=== PATIENT | female | born 1995 | race Caucasian/White ===

== ENCOUNTER → 2016-12-11 | Outpatient (REF) | payer OTHER | LOC: M LAB REF 13:23 | PROVIDERS: ATTEND Internal Medicine Medical Oncology | DX: I82.409 Acute embolism and thrombosis of unspecified deep veins of unspecified lower extremity (principal) ==

== ENCOUNTER → 2017-03-28 | Outpatient (REF) | payer OTHER ==
[2017-03-28 15:08] LABS: INR 0.99; PROTHROMBIN TIME 13.2 SECONDS (12.4-14.5)
[2017-03-28 15:09] LABS: PARTIAL THROMBOPLASTIN TIME 32.5 SECONDS (26.8-37.9)
[2017-03-28 15:33] LABS: COLLAGEN EPINEPHRINE 179 SECONDS (74-162)
[2017-03-28 15:58] LABS: COLLAGEN ADP 128 SECONDS (56-103)
== END ==
LOC: M LAB REF 14:45
DX: I82.90 Acute embolism and thrombosis of unspecified vein (principal)

== ENCOUNTER 2017-03-29 10:19 | Day surgery (SDC) | payer OTHER ==
[2017-03-29] MEDS ORDERED: LIDOCAINE 2% INJ 100 MG/5 ML SDV (FOR ANES.) As Ordered (10:57)
[2017-03-29] MEDS ORDERED: MIDAZOLAM INJ 2 MG/2 ML VIAL (J2250) As Ordered (10:57)
[2017-03-29] MEDS ORDERED: fentaNYL 100 MCG/2 ML INJECTION (J3010) As Ordered (10:57)
[2017-03-29] MEDS ORDERED: PROPOFOL 200 MG/20 ML VIAL As Ordered (10:57)
[2017-03-29] MEDS ORDERED: ROCURONIUM BROMIDE 50 MG/5 ML VIAL As Ordered (10:57)
[2017-03-29] MEDS ORDERED: ONDANSETRON 4MG/2ML VIAL (J2405) As Ordered (10:57)
[2017-03-29] MEDS ORDERED: SUCCINYLCHOLINE 100 MG/5 ML SYRINGE (J0330) As Ordered (10:57)
[2017-03-29] MEDS: LR 1,000 ML IV (11:20)
[2017-03-29 11:39] LABS: CONTROL LINE UCG INT CTR LINE PRESENT; URINE PREG TEST NEGATIVE (NEGATIVE)
[2017-03-29] MEDS ORDERED: ePHEDrine INJ 50 MG/ML VIAL As Ordered (12:00)
[2017-03-29] MEDS: dexameTHASONE 4 MG/ML 1ML VIAL (J1100) IV (12:00)
[2017-03-29] MEDS ORDERED: PHENYLephrine HCL 500 MCG/5 ML (100MCG/ML) SYRINGE (J2370) As Ordered (12:00)
[2017-03-29] MEDS ORDERED: MEPERIDINE INJ 25 MG/ML VIAL (J2175) As Ordered (12:33)
[2017-03-29] MEDS: MEPERIDINE INJ 25 MG/ML VIAL (J2175) IV (12:36)
[2017-03-29] MEDS ORDERED: fentaNYL 100 MCG/2 ML INJECTION (J3010) IV (12:45)
[2017-03-29] MEDS ORDERED: ONDANSETRON 4MG/2ML VIAL (J2405) IV (12:45)
[2017-03-29] MEDS ORDERED: LR 1,000 ML IV ×2 (12:45→13:00)
[2017-03-29] MEDS: PERCOCET 5MG/325MG TAB PO (13:56)
== END 2017-03-29 15:05 | disposition home or self-care (01) ==
LOC: M SDC 10:19
DX: J35.01 Chronic tonsillitis (principal); Z86.718 Personal history of other venous thrombosis and embolism; D68.59 Other primary thrombophilia; Z79.899 Other long term (current) drug therapy; Z79.01 Long term (current) use of anticoagulants
CPT/HCPCS: 42826

== ENCOUNTER → 2017-07-23 | Outpatient (REF) | payer OTHER ==
[2017-07-23 17:36] LABS: HCG, SERUM QUANTITATIVE 13614 MIU/ML
[2017-07-23 17:55] LABS: HEMATOCRIT 36.9 % (36.0-47.0); HEMOGLOBIN 11.8 g/dl (12.0-15.5); MEAN CORPUSCULAR HEMOGLOBIN 28.2 pg (27.0-33.0); MEAN CORPUSCULAR VOLUME 88.1 fl (80.0-96.0); PLATELET COUNT, AUTOMATED 173 10^3/uL (150-450); RED BLOOD COUNT 4.19 10^6/uL (4.00-5.40); RED CELL DISTRIBUTION WIDTH 13.1 % (11.5-14.5); WHITE BLOOD COUNT 4.3 10^3/uL (4.0-10.0)
[2017-07-25 10:29] LABS: RUBELLA IgG QUALITATIVE IMMUNE (IMMUNE)
[2017-07-25 10:42] LABS: HBsAg Prenatal NEGATIVE (NEGATIVE)
[2017-07-25 10:59] LABS: HIV 1&2 SCREEN CENTAUR NEGATIVE (NEGATIVE)
[2017-07-25 10:59] LABS: HEPATITIS C VIRUS ABY INDEX < 0.0 INDEX (<0.8)
== END ==
LOC: M LAB REF 16:18
DX: O36.80X0 Pregnancy with inconclusive fetal viability, not applicable or unspecified (principal)

== ENCOUNTER → 2017-08-22 | Outpatient (REF) | payer OTHER ==
[2017-08-22 20:12] LABS: CHLAMYDIA DNA AMPLIFICATION NEGATIVE (NEGATIVE); GC DNA AMPLIFICATION NEGATIVE (NEGATIVE)
== END ==
LOC: M LAB REF 17:15
DX: Z34.81 Encounter for supervision of other normal pregnancy, first trimester (principal); Z36.89 Encounter for other specified antenatal screening
CPT/HCPCS: 87591

== ENCOUNTER → 2017-11-29 | Outpatient (REF) | payer MEDICAID ==
[2017-11-29 19:24] LABS: HEMATOCRIT 34.7 % (36.0-47.0); HEMOGLOBIN 11.3 g/dl (12.0-15.5); MEAN CORPUSCULAR HGB CONC 32.6 g/dl (32.0-36.5); PLATELET COUNT, AUTOMATED 140 10^3/uL (150-450); RED BLOOD COUNT 3.77 10^6/uL (4.00-5.40); RED CELL DISTRIBUTION WIDTH 14.5 % (11.5-14.5); WHITE BLOOD COUNT 7.7 10^3/uL (4.0-10.0)
[2017-11-29 19:45] LABS: INR 0.97
[2017-11-29 19:46] LABS: PARTIAL THROMBOPLASTIN TIME 34.3 SECONDS (25.4-37.6)
== END ==
LOC: M LAB REF 18:42
DX: O99.89 Other specified diseases and conditions complicating pregnancy, childbirth and the puerperium (principal); Z86.718 Personal history of other venous thrombosis and embolism
CPT/HCPCS: 85610

== ENCOUNTER → 2017-12-29 | Outpatient (CLI) | payer OTHER ==
[2017-12-29 18:14] LABS: GLUCOSE CHALLENGE TEST 1 HOUR 103 MG/DL (LESS THAN 140)
== END ==
LOC: M WUC 12:00
DX: Z34.82 Encounter for supervision of other normal pregnancy, second trimester (principal)
CPT/HCPCS: 82950

== ENCOUNTER → 2017-12-31 | Outpatient (REF) | payer OTHER ==
[2017-12-31 18:58] LABS: HEMATOCRIT 32.6 % (36.0-47.0); HEMOGLOBIN 10.7 g/dl (12.0-15.5); MEAN CORPUSCULAR HEMOGLOBIN 30.1 pg (27.0-33.0); MEAN CORPUSCULAR HGB CONC 32.8 g/dl (32.0-36.5); MEAN CORPUSCULAR VOLUME 91.6 fl (80.0-96.0); PLATELET COUNT, AUTOMATED 138 10^3/uL (150-450); RED BLOOD COUNT 3.56 10^6/uL (4.00-5.40); RED CELL DISTRIBUTION WIDTH 13.8 % (11.5-14.5)
[2018-01-04 08:46] LABS: AB SCREEN (INDIRECT COOMBS)VIS 1 1
== END ==
LOC: M LAB REF 16:21
DX: Z34.83 Encounter for supervision of other normal pregnancy, third trimester (principal); Z36.89 Encounter for other specified antenatal screening
CPT/HCPCS: 85027

== ENCOUNTER → 2018-02-28 | Outpatient (REF) | payer OTHER ==
[~2018-02-28] MED LIST: LOVE1INJ SC; ONDA4SOL PO; PRENTAB9 PO
== END ==
LOC: M LAB REF 16:36
PROVIDERS: ATTEND Obstetrics & Gynecology
DX: Z34.83 Encounter for supervision of other normal pregnancy, third trimester (principal)

== ENCOUNTER 2018-03-21 01:15 | Inpatient (IN) | payer OTHER ==
[2018-03-21] VITALS (7 sets, daily range): BP systolic 87–115; BP diastolic 55–65
[~2018-03-21] VITALS: Ht 160 cm; Wt 75.0 kg
[2018-03-21] MEDS ORDERED: LR 1,000 ML IV SCH (01:43)
[2018-03-21] MEDS ORDERED: OXYTOCIN 30 UNITS IN 0.9% NaCl 500ML IV BAG (J2590) As Ordered ONE (01:47)
[2018-03-21 02:27] LABS: HEMATOCRIT 32.8 % (36.0-47.0); HEMOGLOBIN 10.7 g/dl (12.0-15.5); MEAN CORPUSCULAR HEMOGLOBIN 26.8 pg (27.0-33.0); MEAN CORPUSCULAR HGB CONC 32.6 g/dl (32.0-36.5); PLATELET COUNT, AUTOMATED 148 10^3/uL (150-450)
[2018-03-21] MEDS ORDERED: OXYTOCIN DRIP 30 UNITS in APPROPRIATE DILUENT 1 EA IV SCH (02:40)
[2018-03-21] MEDS ORDERED: ANUSOL HC CREAM 30GM TOP PRN (02:45)
[2018-03-21] MEDS ORDERED: ACETAMINOPHEN 500 MG TAB PO PRN (02:45)
[2018-03-21] MEDS ORDERED: RHOGAM 300 MCG (1500 IU) INJ (J2790) IM SCH (02:45)
[2018-03-21] MEDS ORDERED: MEASLES,MUMPS,RUBELLA VACCINE INJ (MMR-II) (90707) SC SCH (02:45)
[2018-03-21] MEDS ORDERED: DIBUCAINE 1% OINTMENT 30GM TOP PRN (02:45)
[2018-03-21] MEDS ORDERED: DOCUSATE SODIUM 100 MG CAP PO PRN (02:45)
[2018-03-21] MEDS ORDERED: METHYLERGONOVINE MALEATE 0.2 MG TAB PO PRN (02:45)
[2018-03-21 02:48] LABS: CORD GAS ABE V -4.3; CORD GAS O2 SAT V 59.7 %; CORD GAS PCO2 V 44.5 mmHg; CORD GAS PH V 7.311 UNITS; CORD GAS TCO2 V 23.3 MEQ/L
[2018-03-21 02:50] LABS: CORD GAS ABE A -5.9; CORD GAS HCO3 A 23.2 MEQ/L; CORD GAS O2 SAT A 41.3 %; CORD GAS PCO2 A 61.1 mmHg; CORD GAS PH A 7.198 UNITS; CORD GAS PO2 A 24.2 mmHg; CORD GAS SBC A 18.4 MEQ/L; CORD GAS TCO2 A 25.1 MEQ/L
--- NOTE | 2018-03-21 07:14 | HPE ---
DATE OF ADMISSION: 03/21/2018 Jody is a 23-year-old female 3, para 2-0-0-2, with an estimated date of confinement (EDC) of 03/23/2018, estimated gestational age (EGA) 39-5/7 weeks gestation, who presented to labor and delivery with complaints of contractions every 3 minutes. Upon evaluation she was found to be in active labor. At this point, a decision was made to admit the patient. Her record was reviewed. She does have a history of deep vein thrombosis, not with this current . She was on Lovenox 40 mg daily, which was switched to heparin. PAST SURGICAL HISTORY: Tonsillectomy. SOCIAL HISTORY: She is single. Denies any alcohol, drug or cigarette smoking. REVIEW OF SYSTEMS: Unremarkable. MEDICATIONS: - vitamins - heparin ALLERGIES: No known drug allergies. LABS: Blood type is O negative, rubella immune, hepatitis negative, HIV negative, GC chlamydia negative, 1-hour sugar testing was within normal limits. Her Group B Streptococcus (GBS) was negative. PHYSICAL EXAMINATION ON ADMISSION: Normal-appearing female in no acute distress. ABDOMEN: Soft, nontender, nondistended, gravid. EXTREMITIES: No clubbing, cyanosis or edema. She does have multiple varicose veins. VAGINAL EXAM: Fully dilated with a bulging bag, artificial rupture of membranes done, clear fluid noted. Tracing reviewed, category 1 tracing. ASSESSMENT: Intrauterine in second stage of labor. GBS negative. PLAN: Admit to labor and delivery. Routine labs reviewed. Anticipate delivery.
[2018-03-21] MEDS: ENOXAPARIN 40 MG/0.4 ML SYRINGE (J1650) SC SCH (08:11)
[2018-03-21] MEDS: PRENATAL VITAMINS CHEWABLE TABLET PO SCH (08:11)
--- NOTE | 2018-03-21 09:11 | DN ---
DATE OF DELIVERY: 03/21/2018 Jody is a 23-year-old female, 3, para 2-0-0-2, admitted at 39-5/7 weeks gestation in active labor. Artificial rupture of membrane was done. She then pushed and delivered a live female in left occiput anterior position over an intact perineum. scores of 9 and 9. weight 7 pounds 12 ounces. Placenta delivered spontaneously intact. Three-vessel cord. Estimated blood loss 250 mL. Both mother and baby in stable condition.
[2018-03-22 06:44] VITALS: BP 86/51
[2018-03-22 06:57] VITALS: BP 93/55
[2018-03-22] MEDS: ENOXAPARIN 40 MG/0.4 ML SYRINGE (J1650) SC SCH (10:04)
[2018-03-22] MEDS: PRENATAL VITAMINS CHEWABLE TABLET PO SCH (10:04)
[2018-03-22] MEDS ORDERED: MAPA500T2 PO (10:20)
== END 2018-03-22 10:41 | disposition home or self-care (01) | DRG 560 ==
LOC: M LDO 01:15 → M LDI 01:40 → M OBS 04:30
PROVIDERS: ADMIT Obstetrics & Gynecology; ATTEND Obstetrics & Gynecology
PROC: 10E0XZZ Delivery of Products of Conception, External Approach (ICD-10-PCS; principal; 2018-03-21)
PROC: 10907ZC Drainage of Amniotic Fluid, Therapeutic from Products of Conception, Via Natural or Artificial Opening (ICD-10-PCS; 2018-03-21)
DX: O80 Encounter for full-term uncomplicated delivery (principal); Z37.0 Single live birth; Z3A.39 39 weeks gestation of pregnancy

== ENCOUNTER → 2021-12-01 | Outpatient (CLI) | payer OTHER ==
[~2021-12-01] MED LIST changes: +MAPA500T2 PO
== END ==
LOC: M WHC 08:24
PROVIDERS: ATTEND Internal Medicine Hematology
DX: I82.90 Acute embolism and thrombosis of unspecified vein (principal)